=== PATIENT | female | born 1975 | race Caucasian/White ===

== ENCOUNTER 2017-02-02 10:33 | Emergency (ER) | payer OTHER ==
[2017-02-02 12:00] LABS: HEMOGLOBIN 13.7 gm/dl (12.3-15.3); RED BLOOD COUNT 4.74 M/UL (4.00-5.10); WHITE BLOOD COUNT 12.2 K/UL (4.5-11.0)
[2017-02-02 12:18] LABS: BUN/CREATININE RATIO 17 (0-10)
== END 2017-02-02 16:40 | disposition home or self-care (01) ==
LOC: ER1 10:33
PROVIDERS: Physician Assistant
DX: J03.90 Acute tonsillitis, unspecified (principal)
CPT/HCPCS: 36415; 70491; 80053; 85025; 86403; 87040; 87081; 87880; 96361; 96374; 96375; 99283; J2270; J2405; J7050; Q9962